=== PATIENT | female | born 1990 | race Two or more races ===

== ENCOUNTER 2023-06-25 01:41 | Emergency (ER) | payer MEDICAID, OTHER ==
[~2023-06-25] VITALS: Ht 157.5 cm; Wt 67.7 kg
[2023-06-25 02:45] VITALS: BP 115/78; PULSE 104; RESP 13; TEMP 98.3; O2SAT 100
== END 2023-06-25 03:08 ==
LOC: ER 01:41
DX: Z04.3 Encounter for examination and observation following other accident (principal); V49.9XXA Car occupant (driver) (passenger) injured in unspecified traffic accident, initial encounter; Y93.89 Activity, other specified; Y92.89 Other specified places as the place of occurrence of the external cause; Y99.8 Other external cause status